=== PATIENT | male | born 1960 | race Caucasian/White ===

== ENCOUNTER 2019-09-25 21:36 | Emergency (ER) | payer OTHER, SELFPAY ==
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
[2019-09-25 21:38] VITALS: BP 157/93; PULSE 84; RESP 19; TEMP 36.3; O2SAT 100
[2019-09-25] MEDS: TETANUS,DIPHTHERIA,AC PERTUSSIS ADULT (0.5 ML) BOOSTRIX IM (22:27)
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
[2019-09-25] MEDS: KETOROLAC (*BKC) 60 MG/2 ML VIAL IM (23:43)
== END 2019-09-26 00:26 | disposition home or self-care (01) ==
PROVIDERS: Emergency Provider General Practice
DX: S02.2XXA Fracture of nasal bones, initial encounter for closed fracture (principal); S00.81XA Abrasion of other part of head, initial encounter; S00.83XA Contusion of other part of head, initial encounter; R07.81 Pleurodynia; Z23 Encounter for immunization; Y04.2XXA Assault by strike against or bumped into by another person, initial encounter
CPT/HCPCS: 70486; 71101; 72125; 90471; 90715; 96372; 99284; J1885

== ENCOUNTER 2024-08-14 08:19 | Outpatient (CLI) | payer MEDICARE, OTHER, SELFPAY ==
--- OUTSIDE RECORDS SUMMARY | 2024-08-14 08:34 | XMS_ITS | Encounter Summary ---
Author Organization [facility] Address [address] [place] [address] Care Team Providers Care Printing Agent Name Role Phone Padmini Flores MD Primary Care Provider [phone] Encounter Details Date Type Department Care Team (Late st Contact Info) Description 05/29/2019 [facility] [address] [facility], [facility] [address] [place] [address] Himprovider, Scan Social History Tobacco Use Types Packs/Day Years Used Date Smoking Tobacco: Never Assessed Sex and Gender Information Value Date Recorded Sex Assigned at Not on file Legal Sex Male 9:36 AM MDT Gender Identity Not on file Sexual Orientation Not on file documented as of this encounter Plan of Treatment Not on file documented as of this encounter Visit Diagnoses Not on filedocumented in this encounter Additional Health Concerns Infection Onset Date Last Indicated Resolved Time Covid-19 05/10/2021 05/10/2021 06/09/2021 2:30 AM MST documented as of this encounter Care Teams Printing Agent Relationship Specialty Start Date End Date Padmini Flores MD [address] [place] [address] [address] [place] [address] PCP - General Family Medicine 06/13/22 documented as of this encounter
--- OUTSIDE RECORDS SUMMARY | 2024-08-14 08:34 | XMS_ITS ---
Care Plan - [facility] Created on: August 14, 2024 Shaheen Stephens : 1960 Sex: Male Author Organization [facility] Address [address] [place] [address] Phone Care Team Providers Care Pediatric Allergist Name Role Phone Miladis Leonardo DO Unavailable [phone] Pauline Higuera DO Primary Care Provider Unavailab le
--- OUTSIDE RECORDS SUMMARY | 2024-08-14 08:34 | XMS_ITS | Encounter Summary ---
Author Organization [facility] Address [address] [place] [address] Care Team Providers Care Community Product Specialist Name Role Phone Padmini Flores MD Primary Care Provider Encounter Details Date Type Department Care Team (Late st Contact Info) Description 05/31/2019 Abstract [facility] [address] [facility], [place] [address] [place] [address] Himprovider, Scan Social History Tobacco [...] documented as of this encounter Care Teams Community Product Specialist Relationship Specialty Start Date End Date Padmini Flores MD [address] [place] [address] [address] [place] [address] PCP - General Family Medicine 06/13/22 documented as of this encounter
--- OUTSIDE RECORDS SUMMARY | 2024-08-14 08:34 | XMS_ITS | Clinical Summary ---
Author Organization [facility] Address [address] [place] [address] Care Team Providers Care Voice Professor Name Role Phone Padmini Flores MD Primary Care Provider [phone] Allergies No known active allergies Medications cholecalciferol (VITAMIN D-3) 25 mcg (1,000 unit) capsule Vitamin D3 1,000 unit oral capsule one daily Active Active multivitamin with minerals (CENTRUM/CERTAV IT) 9-200 mg-mcg tablet split tablet multivitamin oral tablet take 1 tablet by oral route daily Active Active gluc culp/msm/magnesiu m/vit C (GLUCOSAMINE COMPLEX-MSM ORAL) Active docosahexaenoic acid/epa (FISH OIL ORAL) Active levothyroxine (SYNTHROID, UNITHROID) 112 mcg tablet Take 2 tablets (224 mcg total) by mouth 1 (one) time each day. 60 tablet 1 Active naproxen (NAPROSYN) 500 mg tablet Take 1 tablet (500 mg total) by mouth every 12 (twelve) hours if needed. 2 Active naltrexone HCl (NALTREXONE PO) 4.5 mg. 2 Active Active Problems Problem Noted Date Diagnosed Date Hyperlipidemia 06/13/2022 Assessment & Plan (06/13/2022 2:34 PM MST): Hesitant to start meds right now. Will recheck FLP in 4 weeks and advise follow up Prehypertension 06/13/2022 Assessment & Plan (06/13/2022 2:36 PM MST): Reports had been on meds in the past. Will recheck at subsequent visits- try to work on lifestyle changes first Right inguinal hernia 06/13/2022 Overview (06/13/2022): Reports h/o right inguinal hernia, based on exam from prior physician. Not currently asymptomatic Ventral hernia without obstruction or gangrene 0 06/13/2022 Overview (06/13/2022): Based on PE on 06/13/22. Reducible, soft. Asymptomatic no h/o abd surgery BMI 31.0-31.9,adult 12/13/2021 Assessment & Plan (06/13/2022 2:36 PM MST): Talked about trying to lose the weight again- had gained 10# over the holidays Degenerative disc disease, cervical 11/07/2018 Vitamin D deficiency 11/07/2018 Acquired hypothyroidism 03/02/2017 Assessment & Plan (06/13/2022 2:35 PM MST): TSH is 8.270 but FT4 and T3 were normal Not actually taking Cytomel. Was on this as well as Berkey in the past via a remote endo in [place]. Looking at past trends, has been hard to stabilize TSH. Currently taking Synthroid 224mcg daily, which is a high dose, but still with sx of fatigue. Confirmed he is taking on empty stomach 30 min before meals and other meds and supplements. Will refer to endo Osteoarthritis of shoulder 11/11/2004 Overview (06/13/2022): History of gurvinder shoulder surgeries Immunizations Name Administration Dates Next Due Hep A, 2 Dose Adult (>= 19yrs) 03/29/2013,09/17/2012 Influenza Quadrivalent ID Preservative Free 02/08/2019 Influenza, Injectable, Quadr ivalent, Preservative Free 02/08/2019 Influenza, Unspecified 02/21/2017 Influenza, injectable, quadrivalent 02/19,05/05/2016,02/23/2016(Deferr ed: Patient decision - Pt does not get immunized) Influenza, seasonal, injectable 02/08/2019,03/24,03/11/2006 Td 10/09/2004 Tdap 09/25/2019 Zoster Recombinant 11/15/2021,04/19/2021, 020 Family History Medical History Relation Comments Alcohol abuse Daughter Alcohol abuse Father Pancreatic cancer Father No Known Problems Maternal Grandfather No Known Problems Maternal Grandmother Arthritis Mother meds Osteoporosis Mother No Known Problems Paternal Grandfather No Known Problems Paternal Grandmother Relation Status Comments Daughter Father Maternal Grandfather Maternal Grandmother Mother Paternal Grandfather Paternal Grandmother Social History Tobacco Use Types Packs/Day Years Used Date Smoking Tobacco: Never Smokeless Tobacco: Never Alcohol Use Standard Drinks/Week Comments Not Currently 0 (1 standard drink = 0.6 oz pur e alcohol) Humiliation, Afraid, Rape, and Kick questionnair e Answer Date Recorded Within the last year, have y ou been afraid of your partner or ex-partner? No 12/13/2021 Within the last year, have y ou been humiliated or emotionally abused in other ways by your partner or ex-partner? No Within the last year, have y ou been kicked, hit, slapped, or otherwise physically hurt by your partner or ex-partner? No 12/13/2021 Within the last year, have y ou been raped or forced to have any kind of sexual activity by your partner or ex-partner? No 12/13/2021 Social Connection and Isolat ion Panel [NHANES] Answer Date Recorded In a typical week, how many times do you talk on the phone with family, friends, or neighbors? More than three times a week 12/13/2021 How often do you get togethe r with friends or relatives? Three times a week 12/13/2021 How often do you attend chur ch or yazidism services? More than 4 times per year 12/13/2021 Do you belong to any clubs o r organizations such as zoroastrianism groups, unions, fraternal or athletic groups, or school groups? Yes 12/13/2021 How often do you attend meet ings of the clubs or organizations you belong to? More than 4 times per year 12/13/2021 Are you , , di vorced, , never , or living with a partner? Never 12/13/2021 AUDIT-C Answer Date Recorded Q1: How often do you have a drink containing alc ohol? Never 12/13/2021 Q2: How many drinks containi ng alcohol do you have on a typical day when you are drinking? 1 or 2 12/13/2021 Q3: How often do you have six or more drinks on one occasion? Never 12/13/2021 Overall Financial Resource Strain (CARDIA) Answe r Date Recorded How hard is it for you to pa y for the very basics like food, housing, medical care, and heating? Not very hard 12/13/2021 [facility] - Occupational Stress Questionnaire Answer Date Recorded Do you feel stress - tense, restless, nervous, or anxious, or unable to sleep at night because your mind is troubled all the time - these days? Only a little 12/13/2021 Exercise Vital Sign Answer Date Recorde d On average, how many days pe r week do you engage in moderate to strenuous exercise (like a brisk walk)? 4 days 12/13/2021 On average, how many minutes do you engage in exercise at this level? 50 min 12/13/2021 Hunger Vital Sign Answer Date Recorded Within the past 12 months, y ou worried that your food would run out before you got the money to buy more. Never true 12/14/19 22 Within the past 12 months, t he food you bought just didn't last and you didn't have money to get more. Never true 12/13/2021 PRAPARE - Transportation Answer Date Re corded In the past 12 months, has l ack of transportation kept you from medical appointments or from getting medications? No 11/20 In the past 12 months, has l ack of transportation kept you from meetings, work, or from getting things needed for daily living? No 12/13/2021 Housing Stability Vital Sign Answer Stuart e Recorded In the last 12 months, was t here a time when you were not able to pay the mortgage or rent on time? No 12/13/2021 In the last 12 months, how many places have you lived? 1 12/13/2021 In the last 12 months, was t here a time when you did not have a steady place to sleep or slept in a assisted (including now)? No 12/13/2021 Sex and Gender Information Value Date Recorded Sex Assigned at Not on file Legal Sex Male 9:36 AM MDT Gender Identity Not on file Sexual Orientation Not on file Last Filed Vital Signs Vital Sign Reading Time Taken Comments Blood Pressure 138/82 06/13/2022 1:24 PM MST Pulse 59 06/13/2022 1:24 PM MST Temperature 36.3 C (97.3 F) 06/13/2022 1:24 PM MST Respiratory Rate 20 12/13/2021 4:30 PM MDT Oxygen Saturation 93% 06/13/2022 1:24 PM MST Inhaled Oxygen Concentration - - Weight 101 kg (222 lb 6.4 oz) 06/13/2022 1:24 PM MST Height 176 cm (5' 9.29 ) 12/13/2021 4:30 PM MDT Body Mass Index 32.57 12/13/2021 4:30 PM MDT Plan of Treatment Health Maintenance Due Date Last Done Comments CT Colonography 1960 Cologuard 1960 Sigmoidoscopy 1960 FIT/FOBT 09/17/2013 09/17/2012 Colonoscopy 10/29/2022 10/29/2012, 09/17/2012 Colorectal Cancer Screening 10/29/2022 Influenza Vaccine (#1) 2023 9, 02/08/2019, 02/08/2019, Additional history exists COVID-19 Vaccine ( - season) 2024 Advance Care Plan Codes Not Dropped This Year 2024 Pneumococcal Vaccine: 65+ Years (1 of 1 - PCV) 2024 DTaP,Tdap,and Td Vaccines (2 - Td or Tdap) 09/24/2029 09/25/2019, 10/09/2004 RSV Age 60+ and Patients (1 - 1-dose 75+ series) 2034 Hepatitis A Vaccines Completed 03/29/2013, 09/18/19 13 Zoster Vaccines Completed 11/15/2021, 11/2 01/2021, 01/20/2020 HIB Vaccines Aged Out No longer eligi ble based on patient's age to complete this topic Hepatitis B Vaccines Discontinued IPV Vaccines Aged Out No longer eligi ble based on patient's age to complete this topic Meningococcal Vaccine Aged Out No carl prashant eligible based on patient's age to complete this topic Procedures Procedure Name Priority Date/Time Associated Diagnosis Comments COLONOSCOPY Routine 10/29/2012 9:29 AM MDT from Last 3 Months or Most Recently Relevant to Health Maintenance Results * Hm Colonoscopy (10/29/2012 9:29 AM MDT) Anatomical Region Laterality Modality Other Historical Provider MD HEALTH MAINTENANCE Final Result from Last 3 Months or Most Recently Relevant to Health Maintenance Insurance PENDING SALE TO [facility] PENDING SALE TO [facility] Care Teams Voice Professor Relationship Specialty Start Date End Date Padmini Flores MD [address] [facility] [address] [place] [address] PCP - General Family Medicine 06/13/22
--- OUTSIDE RECORDS SUMMARY | 2024-08-14 08:34 | XMS_ITS | Patient Health Record ---
Author Organization [facility] Address [address] [place] [address] Care Team Providers Care Men'S Golf Coach Name Role Phone unknown, unknown Primary Care Provider Unavailab sabrina Prasad, [id number] Lizz Unavailable Allergies No Known Allergies Results Component Value Reference Range Notes Urinalysis (IH) Reviewed date:11/29/2023 11:09:39 AM Interpretation:Normal Performing Lab: Notes/Report: Normal Blood Hemolyzed Negative trace - ca. 250 Joseph/ml Protein 30 negative - 500 mg/dL Glucose Negative negative - > 1000 mg/dL Spec. Gr. 1.025 1.000 - 1.030 Reason For Referral No Information Medications Medication SIG (Take, Route, Frequency, Duration) Notes Start Date End Date Status Naltrexone HCl 50 MG 1 tablet Orally Once a day States he takes 0.05 mg daily for Hashimotos Active Levothyroxine Sodium 100 MCG 1 capsule i n the morning on an empty stomach Orally Once a day Active Social History Tobacco Use: Social History Observation Description Date Details (start date - stop date) Never Smoker NA - NA Tobacco Control (Standard) Question Answer Notes Tobacco use: Nonsmoker Vital Signs Respiratory Rate 16 /min 11/29/2023 Blood pressure diastolic 92 mm Hg 11/29/2023 Height 69 in 11/29/2023 Blood pressure systolic 144 mm Hg 11/29/2023 Weight 223 lbs 11/29/2023 BMI 32.93 kg/m2 11/29/2023 Encounters Encounter Location Date Provider Diagnosis [id number] [facility] [address] [address] 11/29/2023 Lizz Prasad Encounter for pre-employment health screening examination Z02.1 Assessments Encounter Date Diagnosis (ICD Code) Assessment Notes Treatment Notes Treatment Clinical Notes Section Notes 11/29/2023 Encounter for pre-employment health screening examination (ICD-10 - Z02.1) Plan Of Treatment No Information Insurance Providers Payer Name Payer Address Payer Phone Subscriber Number Group Number Insured Name Patient Relationship to Insured Coverage Start Date Coverage End Date PROMPT PAY/Bill to Patient Shaheen Stephens A Self - patient is the insured Medical (General) History Medical History History ICD Code Hashimotos
--- OUTSIDE RECORDS SUMMARY | 2024-08-14 08:34 | XMS_ITS | Clinical Summary ---
Author Organization [facility] Address [address] [place] [address] Care Team Providers Care Head Holder Name Role Phone None, Provider MD Primary Care Provider Unavaila ble Allergies No known active allergies Medications NON FORMULARY Thyroid testosterone Active predniSONE (DELTASONE) 20 MG tablet Take 1 tablet (20 mg total) by mouth daily for 5 days. 5 tablet 08/01/2024 08/07/19 25 hydrOXYzine (ATARAX) 50 MG tabletIndicatio ns:Poison audrey dermatitis Take 1 tablet (50 mg total) by mouth 3 (three) times daily as needed for Itching. 30 tablet 08/01/2024 08/12/19 25 famotidine (PEPCID) 20 MG tablet Take 1 tablet (20 mg total) by mouth 2 (two) times daily for 5 days. 10 tablet 08/01/2024 08/07/19 25 Encounters Date Type Department Care Team Description 08/01/2024 9:29 AM CDT - 08/01/2024 11:14 AM CDT Emergency [facility] [address] [place] [address] [place] [address] Ajay Cummings, Poison [place]/ Poison [place]/ Poison [place] Discharge Disposition: Home or Self Care (Routine Discharge) 08/01/2024 Travel from Last 3 Months Social History Tobacco Use Types Packs/Day Years Used Date Smoking Tobacco: Never Smokeless Tobacco: Never Tobacco Cessation:Counseling Given: Not Answered Sex and Gender Information Value Date Recorded Sex Assigned at Male 08/01/2024 9:49 AM CDT Legal Sex Male 11:53 AM CDT Gender Identity Male 08/01/2024 9:49 AM CDT Sexual Orientation Not on file Last Filed Vital Signs Vital Sign Reading Time Taken Comments Blood Pressure 118/59 08/01/2024 10:00 AM CDT Pulse 63 08/01/2024 9:27 AM CDT Temperature 36.9 C (98.4 F) 08/01/2024 9:27 AM CDT Respiratory Rate 16 08/01/2024 9:27 AM CDT Oxygen Saturation 100% 08/01/2024 11:10 AM CDT Inhaled Oxygen Concentration - - Weight 103.1 kg (227 lb 6 oz) 08/01/2024 9:27 AM CDT Height 174 cm (5' 8.5 ) 08/01/2024 9:27 AM CDT Body Mass Index 34.07 08/01/2024 9:27 AM CDT Plan of Treatment Health Maintenance Due Date Last Done Comments Colorectal Cancer Screening Colonoscopy (10 Years) 1960 Hepatitis C 1977 COVID-19 Vaccine ( - season) 2024 Influenza Adult (#1) 2024 02/08/2019, 03/01/2018, 02/21/2017, Additional history exists Pneumococcal Vaccine: 65+ Years (1 of 1 - PCV) 2024 DTaP, Tdap and Td Vaccines (2 - Td or Tdap) 09/24/2029 09/25/2019, 10/09/2004 RSV Immunization or 60+ Years (1 - 1-dose 75+ series) 2034 Zoster Vaccines Completed 11/15/2021, 03/23, 01/20/2020 Meningococcal B Vaccine Aged Out No l onger eligible based on patient's age to complete this topic Meningococcal Vaccine Aged Out No carl prashant eligible based on patient's age to complete this topic Pneumococcal Vaccine: Pediatrics (0 to 5 Years) and At-Risk Patients (6 to 64 Years) Aged Out No longer eligible based on patient's age to complete this topic RSV Immunizations Under 20 Months Aged Out No longer eligible based on patient's age to complete this topic Insurance MEDICARE [facility] Care Teams Head Holder Relationship Specialty Start Date End Date None, Provider, MD PCP - General UNKNOWN PHYSICIAN SPECIALTY 10/29/23
--- OUTSIDE RECORDS SUMMARY | 2024-08-14 08:34 | XMS_ITS | Encounter Summary ---
Author Organization [facility] Address [address] [place] [address] Care Team Providers Care Rig Hand Name Role Phone Padmini Flores MD Primary Care Provider [phone] Encounter Details Date Type Department Care Team (Late st Contact Info) Description 04/01/[address] [facility] Occupational Health Services at [facility] [address] [facility], [facility] [address] [place] [address] Blair Staley MD [facility] [address] [place], [place] [id number] Social History Tobacco Use Types Packs/Day Years [...] documented as of this encounter Care Teams Rig Hand Relationship Specialty Start Date End Date Padmini Flores MD [address] [place] [address] [address] [place] [address] PCP - General Family Medicine 06/13/22 documented as of this encounter
--- OUTSIDE RECORDS SUMMARY | 2024-08-14 08:34 | XMS_ITS | Clinical Summary ---
Author Organization [facility] Address [address] [place] [address] Phone Care Team Providers Care Insurance Appraiser Name Role Phone Miladis Leonardo DO Unavailable [phone] Pauline Higuera DO Primary Care Provider Unavailab le Reason for Visit and Chief Complaint Recall Colon Plan of Treatment No Plan of Treatment Recorded Assessments Includes: Assessments from this encounter No Assessments Recorded Medical Equipment - Implanted Devices Includes: Current Devices No Medical Equipment Recorded Medications Administered Includes: Administered Medications from this encounter No Administered Medications Recorded Results Includes: Results discussed during this encounter No Results Recorded For Specified Dates History of Present Illness Includes: History of Present Illness from this encounter No History of Present Illness Recorded Social History No Social History Recorded - Smoking Status Unknown Medical History Includes: Medical History addressed during this encounter No Medical History Recorded Family History Includes: Family History addressed during this encounter No Family History Recorded Review of Systems Includes: Review of Systems from this encounter No Review of Systems Recorded Mental Status Includes: Mental Status from this encounter No Mental Status Recorded Functional Status Includes: Functional Status from this encounter No Functional Status Recorded Physical Exam Includes: Physical Exam from this encounter No Physical Exam Recorded Encounters Encounter Provider Location Date Check-In Time Check-Out Time Diagnosis Recall Colon Mario [facility]-Itzel ojeda 8 7:05AM 7:46AM Insurance Includes: Active Insurance Policies No Insurance Coverage Recorded Guarantor Relationship Effective Dates Guarantor Ph one Kat Shaheen Tiffany Self [id number] Clinical Notes Includes: Clinical Notes from this encounter No Clinical Notes Recorded
--- OUTSIDE RECORDS SUMMARY | 2024-08-14 08:34 | XMS_ITS ---
Author Organization [facility] Address [address] [place] [address] Phone Care Team Providers Care Apparatus Lineman Name Role Phone Miladis Leonardo DO Unavailable [phone] Pauline Higuera DO Primary Care Provider Unavailab le Plan of Treatment No Plan of Treatment Recorded Assessments Includes: Assessments for all patient encounters No Assessments Recorded Medical Equipment - Implanted Devices Includes: Current and historical Devices No Medical Equipment Recorded Medications Administered Includes: Administered Medications in patient's chart No Administered Medications Recorded Results Includes: Results from 08/15/2023 through 08/14/2024 No Results Recorded For Specified Dates History of Present Illness History of Present Illness not supported for this document type No History of Present Illness Recorded Social History No Social History Recorded - Smoking Status Unknown Medical History Includes: Medical History in patient's chart No Medical History Recorded Family History Includes: Family History in patient's chart No Family History Recorded Review of Systems Review of Systems not supported for this document type No Review of Systems Recorded Mental Status No Mental Status Recorded Functional Status No Functional Status Recorded Physical Exam Physical Exam not supported for this document type No Physical Exam Recorded Insurance Includes: Active Insurance Policies No Insurance Coverage Recorded Guarantor Relationship Effective Dates Guarantor Ph one Shaheen Stephens Self [id number] Clinical Notes Includes: Signed Clinical Notes starting from 06/09/2023 No Clinical Notes Recorded
--- OUTSIDE RECORDS SUMMARY | 2024-08-14 08:34 | XMS_ITS | Encounter Summary ---
Author Organization [facility] Address [facility] [address], [address] [place] [address] Care Team Providers Care Automobile Body Repairer Name Role Phone Unavailable Primary Care Provider Unavailabl e Source Comments In the event that these patient records contain information protected by federal confidentiality rules ( 42 CFR Part 2), the Federal rules prohibit you from making any further disclosure of this information unless further disclosure is expressly permitted by the written consent of the person to whom it pertains or as otherwise permitted by 42 CFR Part 2. A general authorization for the release ofmedical or other information is NOT sufficicient for this purpose. The Federal rules restrict any use of the information to criminally investigate or prosecute any alcohol or drug abuse patient.[facility] Encounter Details Date Type Department Care Team (Late st Contact Info) Description 10/09/2004 Emergency [facility] - Emergency Medicine Services [address] [place] [address] PROVIDER, NOT CONVERTED Social History Tobacco Use Types Packs/Day Years Used Date Smoking Tobacco: Never Assessed Sex and Gender Information Value Date Recorded Sex Assigned at Not on file Legal Sex Male 9:53 AM MST Gender Identity Not on file Sexual Orientation Not on file documented as of this encounter Plan of Treatment Not on file documented as of this encounter Visit Diagnoses Not on filedocumented in this encounter
--- OUTSIDE RECORDS SUMMARY | 2024-08-14 08:34 | XMS_ITS | Clinical Summary ---
Author Organization [facility] Address Regional Office [address] [place] [address] Care Team Providers Care Line Prep Cook Name Role Phone Unavailable Primary Care Provider Unavailabl e Source Comments NOTE: The information displayed by Care Everywhere is extracted from the complete medical record and may not identify all current or past patient conditions.[facility] Allergies Active Allergy Reactions Criticality Noted Date Comments No Known Drug Allergies 09/03/2004 No Latex Allergy 09/03/2004 Medications No known medications Active Problems Problem Noted Date Diagnosed Date HIGH DENSITY LIPOPROTEIN DEFICIENCY 04/05/2007 ROUTINE ADULT HEALTH CHECK UP EXAM 03/21/2007 Overview (04/05/2007): CRFs: Age, no HTN, no DM, low HDL, neg FamHx, no tob, no metabolic syndrome. Colonoscopy/Flex sig: Immunizations: Td shot < 10 years ago. Family history of colon or prostate CA: no MRSA INFECTION 07/08/2005 OSTEOARTHRITIS OF SHOULDER. 11/11/2004 Overview (11/11/2004): bilateral OPEN FX FINGER, PHALANX, DISTAL. 10/27/2004 CARBUNCLE 09/29/2004 Immunizations Immunization Administration Dates Next Due INFs 3yrs-adult (Influenza) 03/24/2007, 6 TD pres free (Tetanus, Diphtheria) (TdVax), adso rbed 10/09/2004 Social History Tobacco Use Types Packs/Day Years Used Date Smoking Tobacco: Never Alcohol Use Standard Drinks/Week Comments Not Asked 0 (1 standard drink = 0.6 oz pur e alcohol) Sex and Gender Information Value Date Recorded Sex Assigned at Not on file Legal Sex Male 2:52 PM MDT Gender Identity Not on file Sexual Orientation Not on file Last Filed Vital Signs Vital Sign Reading Time Taken Comments Blood Pressure 108/70 03/21/2007 3:40 PM MDT Pulse 80 03/21/2007 3:40 PM MDT Temperature 35.7 C (96.3 F) 03/21/2007 3:40 PM MDT Respiratory Rate 20 03/21/2007 3:40 PM MDT Oxygen Saturation 95% 03/21/2007 3:40 PM MDT Inhaled Oxygen Concentration - - Weight 106.2 kg (234 lb 1.6 oz) 03/21/2007 3:40 PM MDT Height 175.3 cm (5' 9 ) 03/21/2007 3:40 PM MDT Body Mass Index 34.57 03/21/2007 3:40 PM MDT Plan of Treatment Not on file
--- OUTSIDE RECORDS SUMMARY | 2024-08-14 08:34 | XMS_ITS | Encounter Summary ---
Author Organization [facility] Address [address] [place] [address] Care Team Providers Care Mercury Washer Name Role Phone Padmini Flores MD Primary Care Provider [phone] Encounter Details Date Type Department Care Team (Late st Contact Info) Description 03/23/2020 Abstract [facility] [address] [facility] [address] [place] [address] Jourdan Gaona MD [address] [place] [address] [address] [place] [address] Social History Tobacco Use Types Packs/Day Years Used Date Smoking Tobacco: Never Smokeless Tobacco: Never Sex and Gender Information Value Date Recorded [...] Covid-19 05/10/2021 05/10/2021 06/09/2021 2:30 AM MST Assessment Noted Time PHQ-9 Depression Total Score: 0 01/20/20 20 7:44 AM MDT documented as of this encounter Care Teams Mercury Washer Relationship Specialty Start Date End Date Padmini Flores MD [address] [place] [address] [address] [place] [address] PCP - General Family Medicine 1/23/23 documented as of this encounter
--- OUTSIDE RECORDS SUMMARY | 2024-08-14 08:34 | XMS_ITS | Clinical Summary ---
Author Organization [facility] Address [address] [place] [address] Care Team Providers Care Incident Response Analyst Name Role Phone Unavailable Primary Care Provider Unavailabl e Social History Tobacco Use Types Packs/Day Years Used Date Smoking Tobacco: Never Assessed Sex and Gender Information Value Date Recorded Sex Assigned at Not on file Legal Sex Male 9:42 AM PST Gender Identity Not on file Sexual Orientation Not on file Plan of Treatment Not on file
--- OUTSIDE RECORDS SUMMARY | 2024-08-14 08:34 | XMS_ITS | Clinical Summary ---
Author Organization [facility] [employer] [facility] Address [address] [address] Care Team Providers Care Vending Machine Operator Name Role Phone Natividad Brown MD Primary Care Provider Allergies No known active allergies Medications lisinopril (PRINIVIL,ZEST RIL) 10 mg tablet lisinopril 10 mg tablet Active levothyroxine (SYNTHROID) 200 mcg tablet levothyroxine 200 mcg tablet Active oxyCODONE (ROXICODONE) 5 mg immediate release tablet Take 1-2 tablets by mouth every 6 hours as needed for Acute Pain. 20 tablet 9 Active naproxen (NAPROSYN) 500 mg tablet Take 1 tablet by mouth 2 times daily (with meals) for Pain. 10 tablet 3 9 Active Active Problems Problem Noted Date Diagnosed Date Left shoulder pain 06/20/2019 Primary osteoarthritis of left shoulder 04/01/20 19 Social History Tobacco Use Types Packs/Day Years Used Date Smoking Tobacco: Never Smokeless Tobacco: Never Alcohol Use Standard Drinks/Week Comments No 0 (1 standard drink = 0.6 oz pur e alcohol) AUDIT-C Answer Date Recorded Frequency of Alcohol Consumption Never 03/02/2018 Average Number of Drinks Not on file 018 Frequency of Binge Drinking Not on file 02/19 Sex and Gender Information Value Date Recorded Sex Assigned at Not on file Legal Sex Male 12:48 AM MDT Gender Identity Not on file Sexual Orientation Not on file Last Filed Vital Signs Vital Sign Reading Time Taken Comments Blood Pressure - - Pulse - - Temperature - - Respiratory Rate - - Oxygen Saturation - - Inhaled Oxygen Concentration - - Weight 98.9 kg (218 lb) 06/10/2019 7:42 AM [facility] Height 175.3 cm (5' 9 ) 06/10/2019 7:42 AM [facility] Body Mass Index 32.19 06/10/2019 7:42 AM [facility] Plan of Treatment Health Maintenance Due Date Last Done Comments CT Colonography 1959 Colonoscopy 1959 Colorectal Cancer Screening 1959 Flexible Sigmoidoscopy 1959 Stool DNA Test (Cologuard) 1959 Stool Occult Blood Test (FIT) 1959 Hepatitis C Antibody Screening 1977 Medical Durable Power of Att orn[employer]penoid [employer]rapeutics (MDPOA) 1977 Tdap/Td Vaccine (1 - Tdap) 10/10/2004 10/09/2004 Pneumonia Vaccine 50+ (1 of 1 - PCV) 2009 Shingles Vaccine (1 of 2) 2009 Lipids 04/04/2012 04/04/2007, 04/04/2007 Influenza Vaccine (#1) 2024 , 03/01/2018, 02/21/2017, Additional history exists SARS-COV2 (COVID-19) Vaccine ( season) 2024 Insurance [employer] POS CC[employer] WC Member Subscriber Plan / Payer (Ef fective 2015-Present) Name:Shaheen Stephens Relation to Subscriber:Self Name:Shaheen Stephens Payer ID:[id number] Type:Other Address: [place] [id number] Care Teams Vending Machine Operator Relationship Specialty Start Date End Date Natividad Brown MD PCP - General Physical Medicine and Rehabilitation 03/02/18
--- OUTSIDE RECORDS SUMMARY | 2024-08-14 08:34 | XMS_ITS | Clinical Summary ---
Author Organization [facility] Address [facility] [address], [address] [place] [address] Care Team Providers Care Toy Assembler Name Role Phone Unavailable Primary Care Provider Unavailabl e Source Comments [facility] (Labor and Delivery) documents do not appear in the Encounter Summary [facility] Social History Tobacco Use Types Packs/Day Years Used Date Smoking Tobacco: Never Assessed Sex and Gender Information Value Date Recorded Sex Assigned at Not on file Legal Sex Male 9:53 AM MST Gender Identity Not on file Sexual Orientation Not on file Plan of Treatment Health Maintenance Due Date Last Done Comments CT Colonography 1959 DNA-based stool test (Cologuard) 1959 Lipid Panel 1959 Sigmoidoscopy 1959 gFOBT or FIT 1959 Tetanus Diphtheria and Pertu ssis Vaccines (1 - Tdap) 1978 Colonoscopy 2004 Colorectal Cancer Screening 2004 Pneumococcal Vaccine: 65+ Ye ars (1 of 1 - PCV) 2009 Zoster Vaccines (1 of 2) 2009 COVID-19 Vaccine ( - 2023-2 5 season) 2024 Influenza Vaccine (#1) 2024 RSV Vaccines (1 - 1-dose 75+ series) 2034 HPV Vaccine Aged Out No longer eligi ble based on patient's age to complete this topic Hepatitis A Vaccine Aged Out No longe r eligible based on patient's age to complete this topic Hepatitis B Vaccine Aged Out No longe r eligible based on patient's age to complete this topic Hib Vaccine Aged Out No longer eligi ble based on patient's age to complete this topic IPV Vaccine Aged Out No longer eligi ble based on patient's age to complete this topic Meningococcal Vaccine (MCV4) Aged Out No longer eligible based on patient's age to complete this topic Pneumococcal Vaccine: Pediat rics (0 to 5 Years) and At-Risk Patients (6 to 64 Years) Aged Out No longer eligible b ased on patient's age to complete this topic Rotavirus Vaccine Aged Out No longer eligible based on patient's age to complete this topic
--- OUTSIDE RECORDS SUMMARY | 2024-08-14 08:34 | XMS_ITS | Encounter Summary ---
Author [facility] Address [address] [place] [address] Care Team Providers Care Implementation Coordinator Name Role Phone Unavailable Primary Care Provider Unavailabl e Prior Encounters Date Type Department Care Team Description 06/10/2019 Converted CPS Chart Documents Son [facility] [address] [place] [id number] <No scans attached> 06/10/2019 Converted 13x Documents Son [facility] [address] [place] [phone] <No scans attached> Plan of Treatment Not on file Procedures Procedure Name Priority Date/Time Associated Diagnosis Comments CANCELLED APPOINTMENT Routine 10/20/2016 1:00 AM MDT 15 CROWN - FULL CAST PREDOMINANTLY BASE METAL Routine 05/11/2016 1:00 AM MST 14 CROWN - FULL CAST PREDOMINANTLY BASE METAL Routine 05/11/2016 1:00 AM MST 2 MOD AMALGAM 3 SURFACE Routine 05/11/20 16 1:00 AM MST 30 B AMALGAM 1 SURFACE Routine 6 1:00 AM MST 3 O AMALGAM 1 SURFACE Routine 05/11/2016 1:00 AM MST 19 ENDODONTIC THERAPY, ANTERIOR TOOTH (EXCLUDING FINAL VOODOO) Routine 05/11/2016 1:00 AM MST 8 ENDODONTIC THERAPY, ANTERIOR TOOTH (EXCLUDING FINAL VOODOO) Routine 05/11/2016 1:00 AM MST 31 CROWN PFM POST Routine 05/11/2016 1:0 0 AM MST 19 CROWN PFM ANT Routine 05/11/2016 1:00 AM MST 18 CROWN PFM ANT Routine 05/11/2016 1:00 AM MST 9 CROWN PFM ANT Routine 05/11/2016 1:00 AM MST 8 CROWN PFM ANT Routine 05/11/2016 1:00 AM MST 19 CORE BUILDUP, INCLUDING ANY PINS WHEN REQUIRED Routine 05/11/2016 1:00 AM MST 19 CEMENT CROWN Routine 05/11/2016 1:00 AM [facility] 19 CERECFIRED CROWNPOST Routine 05/11/20 16 1:00 AM [facility] COMPREHENSIVE ORAL EVALUATION - NEW OR ESTABLISHED PATIENT Routine 05/11/2016 1:00 AM [facility] ADDITIONAL X-RAY Routine 05/11/2016 1:00 AM [facility] SINGLE X-RAY Routine 05/11/2016 1:00 AM [facility] 30 O COMPOSITE FILLING Routine 6 1:00 AM [facility] Visit Diagnoses Not on file
--- OUTSIDE RECORDS SUMMARY | 2024-08-14 08:34 | XMS_ITS | Clinical Summary ---
Author Organization [facility] Address [address] [place] [address] Phone Care Team Providers Care Supervisor [place] Name Role Phone Miladis Leonardo DO Unavailable [phone] Pauline Higuera DO Primary Care Provider Unavailab le Reason for Visit and Chief Complaint Son ([facility]) Colonoscopy Plan of Treatment No Plan of Treatment [...] Location Date Check-In Time Check-Out Time Diagnosis Son ([facility]) Colonoscopy Mario Tsang MD [facility] 10/30/19 13 10:10AM 12:00PM Insurance Includes: Active Insurance Policies No Insurance Coverage Recorded Guarantor Relationship Effective Dates Guarantor Ph one Shaheen Stephens Tiffany Self [id number] Clinical Notes Includes: Clinical Notes from this encounter No Clinical Notes Recorded
--- OUTSIDE RECORDS SUMMARY | 2024-08-14 08:34 | XMS_ITS | Encounter Summary ---
Author Organization [facility] Address [address] [place] [address] Care Team Providers Care Beef Ribber Name Role Phone Padmini Flores MD Primary Care Provider [phone] Encounter Details Date Type Department Care Team (Late st Contact Info) Description 01/20/2020 [facility] [address], [facility] [address] [place] [address] [facility] Social History Tobacco Use Types Packs/Day Years Used Date Smoking Tobacco: Never Smokeless Tobacco: Never Sex and Gender Information Value Date Recorded Sex Assigned at Not on file Legal Sex Male 9:36 AM MDT Gender Identity Not on file Sexual Orientation Not on file COVID-19 Exposure Response Date Recorded In the last month, have you been in contact with someone who was confirmed or suspected to have Coronavirus / COVID-19? No / Unsure 01/20/2020 7:30 AM MDT documented as of this encounter Plan of Treatment Not on file documented as of this encounter Visit Diagnoses Not on filedocumented in this encounter Additional Health Concerns Infection Onset Date Last Indicated Resolved Time Covid-19 05/10/2021 05/10/2021 06/09/2021 2:30 AM MST Assessment Noted Time PHQ-9 Depression Total Score: 0 01/20/20 7:44 AM MDT documented as of this encounter Care Teams Beef Ribber Relationship Specialty Start Date End Date Padmini Flores MD [address] [place] [address] [address] [place] [address] PCP - General Family Medicine 06/13/22 documented as of this encounter
--- OUTSIDE RECORDS SUMMARY | 2024-08-14 08:34 | XMS_ITS | Referral Summary ---
Author Organization [facility] Address [facility] [address], [address] [place] [address] Care Team Providers Care Deicer Inspector Electric Name Role Phone Unavailable Primary Care Provider Unavailabl e Source Comments [facility] (Labor and Delivery) documents do not appear in the Encounter Summary [facility] Social History Tobacco Use Types Packs/Day Years Used Date Smoking Tobacco: Never Assessed Sex and Gender Information Value Date Recorded Sex Assigned at Not on file Legal Sex Male 9:53 AM MST Gender Identity Not on file Sexual Orientation Not on file Plan of Treatment Not on file
--- OUTSIDE RECORDS SUMMARY | 2024-08-14 08:35 | XMS_ITS ---
Author Organization [facility] Address [address] [place] [address] Care Team Providers Care Molding Line Operator Name Role Phone unknown, unknown Primary Care Provider Unavailab Martinez, [id number] Lizz Unavailable Allergies No Known Allergies Results Component Value Reference Range Notes Urinalysis (IH) Reviewed date:11/29/2023 11:09:39 AM Interpretation:Normal Performing Lab: Notes/Report: Normal Blood Hemolyzed Negative trace - ca. 250 Joseph/ml Protein 30 negative - 500 mg/dL Glucose Negative negative - > 1000 mg/dL Spec. Gr. 1.025 1.000 - 1.030 REASON FOR VISIT DOT Physical Medications Medication SIG (Take, Route, Frequency, Duration) [...] Answer Notes Tobacco use: Nonsmoker Vital Signs Blood pressure systolic 144 mm Hg 11/29/19 24 Blood pressure diastolic 92 mm Hg 024 Respiratory Rate 16 /min 11/29/2023 Height 69 in 11/29/2023 Weight 223 lbs 11/29/2023 BMI 32.93 kg/m2 11/29/2023 Encounters Encounter Location Date Provider Diagnosis [id number] [facility] [address] [address] 11/29/2023 Lizz Prasad Encounter for pre-employment health screening examination Z02.1 Assessments Encounter Date Diagnosis (ICD Code) Assessment Notes Treatment Notes Treatment Clinical Notes Section Notes 11/29/2023 Encounter for pre-employment health screening examination (ICD-10 - Z02.1) Plan Of Treatment Next Appt Details Follow Up: As Needed, Reason : Progress Notes * Shaheen STEPHENS ADOB: 0 (63 yo M)Acc No.[id number]:11/29/2023 Progress Note Patient: Shaheen BRASWELL Provider: Brian Prasad APN :1960 A ge:63 Y S ex:Male Date:11/29/2023 External Visit ID:[id number] Address:[facility] [address] [facility], [place], [id number] Pcp:unknown unknown Subjective: * Chief Complaints: * 1 . DOT Physical. * HPI: C onstitutional: Patient presents to clinic for DOT physical. * ROS: C ONSTITUTIONAL: feels well y es. * Medical History: H ashimotos. * Surgical History: D enies Past Surgical History. * Hospitalization/Major Diagno stic Procedure: D enies Past Hospitalization. * Family History: Denies family history of sudden cardiac . * Social History: T obacco Use: T obacco Control (Standard) T obacco use: N onsmoker. * Medications: T aking Naltrexone HCl 50 MG Tablet 1 tablet Orally Once a day States he takes 0.05 mg daily for Hashimotos, Taking Levothyroxine Sodium 100 MCG Capsule 1 capsule in the morning on an empty stomach Orally Once a day , Medication List reviewed and reconciled with the patient * Allergies: N .K.D.A. Objective: * Vitals: P ulse:63, RR:16, BP:144/92, Pain (at time of visit):0/10, LNMP: male, Ht: 69, Wt: 223, BMI:32.93, Neck Circumference: 18. * Examination: F ocused Exam: T he patient was informed of his right to request a supervisor concrete stone finishing during the exam. The exam was conducted without incident. Assessment: * Assessment: 1. E ncounter for pre-employment health screening examination - Z02.1 (Primary) Plan: * Treatment: Value Reference Range B lood Hemolyzed Negative trace - ca. 250 Joseph/ ml * P rotein 30 negative - 500 mg/dL * G lucose Negative negative - > 1000 mg /dL * S pec. Gr. 1.025 1.000 - 1.030 * Urine collected by provider. Results reiewed by provider with patient.Lizz Prasad 11/29/2023 10:09:05 AM MDT > * Procedure Codes: 8 1002 URINALYSIS NON AUTOMATED WITH NO MICRO, DOTEP Department of Transportation Employment Physicals * Follow Up: A s Needed * Billing Information: * Visit Code: * Procedure Codes: 41632 URINALYSIS NON AUTOMATED WITH NO MICRO. DOTEP Department of Transportation Employment Physicals. Images * 11-29-2023-09-00-25-AM ID an d INSUR 7.10.24 DOT * Sign off status: Completed true * Provider: Brian Prasad APN Date: 0 11/29/2023 Generated for Mac fuentes/Gilbert/eTransmitting on: 0 08/14/2024 08:34 AM CDT History and Physical Notes * HPI (History of Present Illness) Category Sub-Category Detail Notes Category Not es Constitutional Patient prese nts to clinic for DOT physical. Examination Category Sub-Category Detail Notes Category Not es Focused Exam The patient was informed of his right to request a supervisor concrete stone finishing during the exam. The exam was conducted without incident.
[2024-08-14 08:43] LABS: Basophils Absolute Auto 0.05 K/mm3 (0.00-0.10); Basophils Percent Auto 0.9 % (0.0-1.0); Eosinophils Absolute Auto 0.25 K/mm3 (0.02-0.50); Eosinophils Percent Auto 4.6 % (1.0-6.0); Hematocrit 43.8 % (37.0-46.0); Hemoglobin 14.6 g/dL (12.4-15.3); Immature Granulocyte Absolute 0.02 K/mm3 (0.00-0.00); Immature Granulocyte Percent A 0.4 % (0.0-0.0); Lymphocytes Absolute Auto 0.86 K/mm3 (1.10-4.50); Lymphocytes Percent Auto 15.9 % (18.0-42.0); Mean Corpuscular HGB Conc 33.3 g/dL (32-36); Mean Corpuscular Volume 89.9 fL (78.0-102.0); Mean Platelet Volume 9.8 fl (8.7-11.0); Monocytes Absolute Auto 0.37 K/mm3 (0.10-0.90); Monocytes Percent Auto 6.8 % (2.0-11.0); Neutrophils Absolute Auto 3.86 K/mm3 (1.70-7.20); Neutrophils Percent Auto 71.4 % (50.0-70.0); Platelet Count Result 161 K/mm3 (150-420); Red Blood Count 4.87 M/mm3 (4.70-6.10); Red Cell Distribution Width 13.1 % (11.6-14.4); White Blood Count 5.4 K/mm3 (4.8-10.8)
[2024-08-14 08:50] LABS: Hemoglobin A1C 4.9 % (<5.7)
[2024-08-14 09:26] LABS: Alanine Aminotransferase 40 U/L (16-63); Albumin Level 4.1 g/dL (3.4-5.0); Alkaline Phosphatase 72 U/L (46-116); Anion Gap 7 mmol/L (4-12); Aspartate Amino Transferase 16 U/L (15-37); Bilirubin,Total 1.4 mg/dL (0.00-1.00); Blood Urea Nitrogen 15 mg/dL (7-18); Calcium 8.8 mg/dL (8.5-10.1); Carbon Dioxide 28 mmol/L (21-32); Chloride 104 mmol/L (98-108); Cholesterol 164 mg/dL (0-200); Estimated Glomerular Filt Rate > 60; Glucose 95 mg/dL (70-99); HDL Direct 40 mg/dL (40-60); LDL Cholesterol Calculated 111 mg/dL (<130); Osmolality Calculated 288 mOsm/kg (285-295); Sodium 139 mmol/L (136-145); Triglycerides 67 mg/dL (0-150)
== END 2024-08-14 08:20 | disposition home or self-care (01) ==
LOC: CHSLAB 08:25
PROVIDERS: PCP Nurse Practitioner Family; Visit Provider Nurse Practitioner Family
DX: Z01.83 Encounter for blood typing (principal); E06.3 Autoimmune thyroiditis; Z13.1 Encounter for screening for diabetes mellitus
CPT/HCPCS: 36415; 80053; 80061; 83036; 85025; 86900; 86901

== ENCOUNTER 2024-08-28 00:34 | Day surgery (SDC) | payer MEDICARE, OTHER, SELFPAY ==
[2024-08-22 12:20] VITALS: BMI 35.5
--- OUTSIDE RECORDS SUMMARY | 2024-08-28 00:36 | XMS_ITS | Encounter Summary ---
Author Organization [facility] Address [address] [place] [address] Care Team Providers Care Gleason Operator Name Role Phone Padmini Flores MD Primary Care Provider [phone] Encounter Details Date Type Department Care Team (Late st Contact Info) Description 05/31/2019 Abstract [facility] [address] [facility], [facility] [address] [place] [address] Himprovider, Scan Social History Tobacco [...] documented as of this encounter Care Teams Gleason Operator Relationship Specialty Start Date End Date Padmini Flores MD [address] [place] [address] [address] [place] [address] PCP - General Family Medicine 06/13/22 documented as of this encounter
--- OUTSIDE RECORDS SUMMARY | 2024-08-28 00:36 | XMS_ITS | Clinical Summary ---
Author Organization [facility] Address [address] [place] [address] Care Team Providers Care Reo Asset Manager Name Role Phone None, Provider MD Primary [...] CDT - 08/01/2024 11:14 AM CDT Emergency [facility] [address] [place] [address] [place] [address] Ajay Cummings, Poison Audrey/ Poison [place]/ Poison [place] Discharge Disposition: Home or Self [...] Hepatitis C 1978 COVID-19 Vaccine ( - 2023-2 5 season) 2024 Pneumococcal Vaccine: 65+ Years (1 of 1 - PCV) 2024 DTaP, Tdap and Td Vaccines ( 2 - Td or Tdap) 09/24/2029 09/25/2019, 10/09/2004 RSV Immunization or 60+ Years (1 - 1-dose 75+ series) 2034 Zoster Vaccines Completed 11/15/2021, 04/19/2021, 01/20/2020 Meningococcal B Vaccine Aged Out No [...] 20 Months Aged Out No longer eligible b ased on patient's age to complete this topic Insurance MEDIC[place] [address] [place] [phone] [facility] Care Teams Reo Asset Manager Relationship Specialty Start Date End Date None, Provider, MD PCP - General UNKNOWN PHYSICIAN SPECIALTY 10/29/23
--- OUTSIDE RECORDS SUMMARY | 2024-08-28 00:36 | XMS_ITS | Referral Summary ---
Author Organization [facility] Address [facility] [address], [address] [place] [address] Care Team Providers Care Optics Manufacturing Technician Name Role Phone Unavailable Primary Care Provider Unavailabl e Source Comments STORK (Labor and Delivery) documents do not appear in the Encounter Summary [facility] Social History Tobacco Use Types Packs/Day Years Used Date Smoking Tobacco: Never Assessed Sex and Gender Information Value Date Recorded Sex Assigned at Not on file Legal Sex Male 9:53 AM MST Gender Identity Not on file Sexual Orientation Not on file Plan of Treatment Not on file
--- OUTSIDE RECORDS SUMMARY | 2024-08-28 00:36 | XMS_ITS | Encounter Summary ---
Author Organization [facility] Address [address] [place] [address] Care Team Providers Care Radiology Resident Name Role Phone Padmini Flores MD Primary Care Provider [phone] Encounter Details Date Type Department Care Team (Late st Contact Info) Description 05/29/2019 Abstract [facility] [address] [facility], [facility] [address] [place] [address] Himprovider, Scan Social History Tobacco [...] documented as of this encounter Care Teams Radiology Resident Relationship Specialty Start Date End Date Padmini Flores MD [address] [place] [address] [address] [place] [address] PCP - General Family Medicine 06/13/22 documented as of this encounter
--- OUTSIDE RECORDS SUMMARY | 2024-08-28 00:37 | XMS_ITS | Encounter Summary ---
Author Organization [facility] Address [address] [place] [address] Care Team Providers Care Plastic Top Assembler Name Role Phone Padmini Flores MD Primary Care Provider [phone] Encounter Details Date Type Department Care Team (Late st Contact Info) Description 03/23/2020 Abstract [facility] [address] [facility] [address] [place] [address] Jourdan Gaona MD [address] [place] [address] [address] [place] [address] Social History Tobacco Use Types [...] documented as of this encounter Care Teams Plastic Top Assembler Relationship Specialty Start Date End Date Padmini Flores MD [address] [place] [address] [address] [place] [address] PCP - General Family Medicine 1/23/23 documented as of this encounter
--- OUTSIDE RECORDS SUMMARY | 2024-08-28 00:37 | XMS_ITS | Patient Health Record ---
Author Organization [facility] Address [address] [place] [address] Care Team Providers Care Blast Furnace Operator Name Role Phone unknown, unknown Primary Care Provider Unavailab Lizz Martinez Unavailable [phone] Allergies No Known Allergies Results Component Value [...] 11/29/2023 Encounters Encounter Location Date Provider Diagnosis [id number] [facility] [address] [address] 11/29/2023 Lizz Prasad Encounter for pre-employment health [...] Date PROMPT PAY/Bill to Patient Shaheen Stephens Self - patient is the insured Medical (General) History Medical History History ICD Code Hashimotos
--- OUTSIDE RECORDS SUMMARY | 2024-08-28 00:37 | XMS_ITS | Encounter Summary ---
Author Organization [facility] Address [address] [place] [address] Care Team Providers Care Technical Staff Engineer Name Role Phone Padmini Flores MD Primary Care Provider [phone] Encounter Details Date Type Department Care Team (Late st Contact Info) Description 04/01/2019 Abstract [facility] Occupational Health Services at [facility] [address] [facility], [facility] [address] [place] [address] Blair Staley MD [facility] [address]LO[address] [place], [place] [id number] Social History Tobacco Use Types Packs/Day Years [...] documented as of this encounter Care Teams Technical Staff Engineer Relationship Specialty Start Date End Date Padmini Flores MD [address] [place] [address] [address] [place] [address] PCP - General Family Medicine 06/13/22 documented as of this encounter
--- OUTSIDE RECORDS SUMMARY | 2024-08-28 00:37 | XMS_ITS | Encounter Summary ---
Author Organization [facility] Address [address] [place] [address] Care Team Providers Care Bus Mechanic Name Role Phone Padmini Flores MD Primary Care Provider [phone] Encounter Details Date Type Department Care Team (Late st Contact Info) Description 01/20/2020 [facility] [address], [facility] [address] [place] [address] Mi Masters Social History Tobacco [...] documented as of this encounter Care Teams Bus Mechanic Relationship Specialty Start Date End Date Padmini Flores MD [address] [place] [address] [address] [place] [address] PCP - General Family Medicine 06/13/22 documented as of this encounter
--- OUTSIDE RECORDS SUMMARY | 2024-08-28 00:37 | XMS_ITS | Clinical Summary ---
Author Organization [facility] Address [facility] [address], [address] [place] [address] Care Team Providers Care Hand Router Operator Name Role Phone Unavailable Primary Care Provider Unavailabl e Source Comments STORK (Labor and Delivery) documents do not appear in the Encounter Summary [facility] Social History Tobacco Use Types Packs/Day [...]
--- OUTSIDE RECORDS SUMMARY | 2024-08-28 00:37 | XMS_ITS | Clinical Summary ---
Author Organization [facility] Address [address] [place] [address] Care Team Providers Care Telecommunications Line Installer Name Role Phone Padmini Flores MD Primary Care Provider [phone] Allergies No known active allergies Medications cholecalciferol [...] Cytomel. Was on this as well as [place] in the past via a remote endo in [place]. Looking at past trends, has been hard [...] often do you attend chur ch or baptist services? More than 4 times per year 12/13/2021 Do you belong to any clubs o r organizations such as mosque groups, unions, fraternal or athletic groups, or [...] care, and heating? Not very hard 12/13/2021 [facility] - Occupational Stress [...] place to sleep or slept in a senior care (including now)? No 12/13/2021 Sex and Gender [...] 10/29/2022 10/29/2012, 09/17/2012 Colorectal Cancer Screening 10/29/2022 COVID-19 Vaccine ( - season) 2024 Advance Care Plan Codes Not Dropped This Year 2024 Pneumococcal Vaccine: 65+ Years (1 of 1 - PCV) 2024 Influenza Vaccine (Season Ended) 2024 02/08/2019, 02/08/2019, 02/08/2019, Additional history exists DTaP,Tdap,and Td Vaccines (2 - Td or [...] AM MDT) Anatomical Region Laterality Modality Other [facility] Provider MD HEALTH MAINTENANCE Final Result from Last 3 Months or Most Recently Relevant to Health Maintenance Insurance [facility] Care Teams Telecommunications Line Installer Relationship Specialty Start Date End Date Padmini Flores MD [address] [facility] [address] [place], [place] [id number] PCP - General Family Medicine 06/13/22
--- OUTSIDE RECORDS SUMMARY | 2024-08-28 00:37 | XMS_ITS | Clinical Summary ---
Author Organization [facility] Address Regional Office [address] [place] [address] Care Team Providers Care Manager Editorial Name Role Phone Unavailable Primary Care Provider Unavailabl e Source Comments NOTE: The information displayed by Care Everywhere is extracted from the complete medical record and may not identify all current or past patient conditions.[facility] Allergies Active Allergy Reactions Criticality Noted Date [...]
--- OUTSIDE RECORDS SUMMARY | 2024-08-28 00:37 | XMS_ITS | Encounter Summary ---
Author Organization [facility] Address [facility] [address], [address] [place] [address] Care Team Providers Care Golf Professional Name Role Phone Unavailable Primary Care Provider [...] or prosecute any alcohol or drug abuse patient.[facility] Encounter Details Date Type Department Care Team (Late st Contact Info) Description 10/09/2004 Emergency [facility] - Emergency Medicine Services [address] [place] [address] PROVIDER, NOT CONVERTED Social History [...]
--- OUTSIDE RECORDS SUMMARY | 2024-08-28 00:37 | XMS_ITS ---
Author Organization [facility] Address [address] [place] [address] Care Team Providers Care Water Treatment Plant Engineer Name Role Phone unknown, unknown Primary Care Provider Unavailab Lizz Martinez Unavailable [phone] Allergies No Known Allergies Results Component Value [...] 11/29/2023 Encounters Encounter Location Date Provider Diagnosis [id number] [facility] [address] [address] 11/29/2023 Lizz Prasad Encounter for pre-employment health screening examination Z02.1 Assessments Encounter Date Diagnosis (ICD Code) Assessment Notes Treatment Notes Treatment Clinical Notes Section Notes 11/29/2023 Encounter for pre-employment health screening examination (ICD-10 - Z02.1) Plan Of Treatment Next Appt Details Follow Up: As Needed, Reason : Progress Notes * Shaheen STEPHENS ADOB: 0 (63 yo M)Acc No.[id number]:11/29/2023 Progress Note Patient: Shaheen BRASWELL Provider: Brian Prasad APN :1960 A ge:63 Y S ex:Male Date:11/29/2023 External Visit ID:[id number] Address[facility] [place], [id number] Pcp:unknown unknown Subjective: * Chief Complaints: * [...] informed of his right to request a cigarette vendor during the exam. The exam was conducted [...] Information: * Visit Code: * Procedure Codes: 16624 URINALYSIS NON AUTOMATED WITH NO MICRO. DOTEP Department of Transportation Employment Physicals. Images * 11-29-2023-25-AM ID an d INSUR 7.10.24 DOT * Sign off status: Completed true * Provider: Brian Prasad APN Date: 0 11/29/2023 Generated for Mac fuentes/Gilbert/eTransmitting on: 0 08/28/2024 12:36 AM CDT History and Physical Notes * HPI (History of Present Illness) Category Sub-Category Detail Notes Category Not es Constitutional Patient prese nts to clinic for DOT physical. Examination Category Sub-Category Detail Notes Category Not es Focused Exam The patient was informed of his right to request a cigarette vendor during the exam. The exam was conducted without incident.
[2024-08-28 07:57] VITALS: BP 140/83; PULSE 65; RESP 20; TEMP 36.3; O2SAT 96
[2024-08-28] MEDS: LACTATED RINGERS 1,000 ML 150 ML IV CONT (08:06)
--- NOTE | 2024-08-28 08:17 | WPDANESEPPF ---
Anes - Initial Pre Proc Eval Procedure: Operation Date: 08/28/24 09:00 Proposed Procedures p Colonoscopy - Aroldo Gaspar MD Date/Time: 08/28/24 08:17 Surgeon: Aroldo Gaspar MD Pre Op Diagnosis: Personal history of colon polyps, unspecified Patient Data Age: 64 Gender: M Height: 1.68 m Weight: 99.3 kg Last Vital Signs Temp 36.3 C L 08/28/24 07:57 Pulse 65 08/28/24 07:57 Resp 20 08/28/24 07:57 BP 140/83 08/28/24 07:57 Pulse Ox 96 08/28/24 07:57 O2 Del Method Room Air 08/28/24 07:57 Allergies Allergy/AdvReac Type Severity Reaction Status Date / Time poisin pelon AdvReac Intermediate Swelling Uncoded 08/28/24 07:55 Home Medications ?Medication ?Instructions ?Recorded ?Confirmed ?Type ibuprofen 800 mg tablet 800 mg PO TID PRN pain #20 tabs 09/26/19 08/22/24 Rx liothyronine 5 mcg tablet 10 mcg PO DAILY 08/07/24 08/28/24 History thyroid (pork) 120 mg tablet mg PO 08/07/24 08/07/24 History ([place] Thyroid) Patient hx anesthesia problems: none Family hx anesthesia problems: none Results Review: All pre-operative results and documents have been reviewed as part of the pre-operative evaluation. COUNT INCLUDES [facility] Past Medical History Medical History Personal history of colon polyps, unspecified Cindy's disease Patient denies medical problems Social History Social History Smoking status: Former smoker Alcohol intake: current Drinks per week: 2 Substance use: never Substance use type: does not use Living arrangements: alone Gender identity (if verbalized by the patient): Male Spiritual care concerns: No Anes - Eval Final PreProcedure Day of Procedure 08/28/24 08:17 Patient weight: obese Heart: regular rate and rhythm Lungs: clear to auscultation Airway: Mallampati scale class II Neurological: alert and oriented Last oral intake: >/= 8 hours ASA classification: II Emergent: no Anesthetic plan: proceed Anesthesia type and monitoring: general GIVS and standard monitoring Results Review: All pre-operative results and documents have been reviewed as part of the pre-operative evaluation. Informed Consent: The patient's anesthetic plan and its attendant risks and benefits were discussed with the patient/family/POA. Questions were solicited and answers provided to the satisfaction of the patient/family/POA.
--- NOTE | 2024-08-28 09:26 | PM.IMHP ---
H&P: HPI History of Present Illness Date/Time: 08/28/24 09:26 Chief Complaint: History of colon polyps Narrative: The patient has a history of colonic polyps, the last colonoscopy was approximately 5 years ago. Review of Systems Review of Systems: All systems reviewed & are unremarkable except as noted in HPI and below PMFSH Past Medical History Medical History Personal history of colon polyps, unspecified Cindy's disease Patient denies medical problems Social History Social History Smoking status: Former smoker Alcohol intake: current Drinks per week: 2 Substance use: never Substance use type: does not use Living arrangements: alone Gender identity (if verbalized by the patient): Male Spiritual care concerns: No Meds Home Medications and Allergies Home Medications ?Medication ?Instructions ?Recorded ?Confirmed ?Type ibuprofen 800 mg tablet 800 mg PO TID PRN pain #20 tabs 09/26/19 08/22/24 Rx liothyronine 5 mcg tablet 10 mcg PO DAILY 08/07/24 08/28/24 History thyroid (pork) 120 mg tablet mg PO 08/07/24 08/07/24 History ([place] Thyroid) Allergies Allergy/AdvReac Type Severity Reaction Status Date / Time poisin pelon AdvReac Intermediate Swelling Uncoded 08/28/24 07:55 Vital Signs Vital Signs - 24 hr 08/28/24 07:57 Temperature 97.4 F L Pulse Rate 65 Respiratory Rate 20 Blood Pressure 140/83 Pulse Oximetry 96 Oxygen Delivery Room Air Exam Const: General: cooperative and healthy appearing Resp: Effort & Inspection: normal respiratory effort and able to speak in complete sentences Auscultation: clear to auscultation bilaterally Cardio: Rate: regular rate Rhythm: regular rhythm GI: Inspection: normal to inspection GI Palp: No No hepatosplenomegaly present Auscultation: normal bowel sounds Rectal Exam: deferred Skin: General skin exam: normal color Psych: Appearance: grossly normal Mental Status: mental status grossly normal Assessment and Plan Assessment and plan (1) Personal history of colon polyps, unspecified: Code(s): Z86.0100 - Personal history of colon polyps, unspecified Status: Acute Assessment and Plan: The patient is deemed a good candidate for the procedure. Consent signed. Will proceed.
[2024-08-28 09:53] VITALS: BP 126/74; PULSE 60; RESP 18; O2SAT 100
[2024-08-28 10:03] VITALS: BP 140/85; PULSE 68; RESP 22; O2SAT 100
[2024-08-28 10:13] VITALS: BP 143/87; PULSE 62; RESP 25; O2SAT 100
== END 2024-08-28 10:25 | disposition home or self-care (01) ==
PROVIDERS: PCP Nurse Practitioner Family; Referring Provider Nurse Practitioner Family; Visit Provider Internal Medicine Gastroenterology
PROC: 0DJD8ZZ Inspection of Lower Intestinal Tract, Via Natural or Artificial Opening Endoscopic (ICD-10-PCS; CPT 45378; principal; 2024-08-28 09:00)
DX: Z12.11 Encounter for screening for malignant neoplasm of colon (principal); K57.30 Diverticulosis of large intestine without perforation or abscess without bleeding; K64.8 Other hemorrhoids; Z86.0100 Personal history of colon polyps, unspecified; Z87.891 Personal history of nicotine dependence; E66.9 Obesity, unspecified; Z68.35 Body mass index [BMI] 35.0-35.9, adult
CPT/HCPCS: G0105; J2003; J2704; J7120

== ENCOUNTER 2024-09-30 11:15 | Outpatient (CLI) | payer MEDICARE, SELFPAY ==
--- OUTSIDE RECORDS SUMMARY | 2024-09-30 11:29 | XMS_ITS | Clinical Summary ---
Author Organization [facility] Address [facility] [address], [address] [place] [address] Care Team Providers Care Project Designer Name Role Phone Unavailable Primary Care Provider Unavailabl e Source Comments STORK (Labor and Delivery) documents do not appear in the Encounter Summary [facility] Social History Tobacco Use Types Packs/Day Years Used Date Smoking Tobacco: Never Assessed Sex and Gender Information Value Date Recorded Sex Assigned at Not on file Legal Sex Male 9:53 AM MST Gender Identity Not on file Sexual Orientation Not on file Plan of Treatment Health Maintenance Due Date Last Done Comments Retired: Lipid Panel 1960 Tetanus Diphtheria and Pertu ssis Vaccines (1 - Tdap) 1978 CT Colonography 2004 Colon Cancer Screening 2004 Colonoscopy 2004 DNA-based stool test (Cologuard) 2004 Sigmoidoscopy 2004 gFOBT or FIT 2004 Pneumococcal Vaccine: 65+ Ye ars (1 of 1 - PCV) 2009 Zoster Vaccines (1 of 2) 2009 COVID-19 Vaccine ( - 2023-2 5 season) 2024 Influenza Vaccine (Season Ended) 2025 RSV Vaccines (1 - 1-dose 75+ series) [...] patient's age to complete this topic Meningococcal B Vaccine Aged Out No l [...]
--- OUTSIDE RECORDS SUMMARY | 2024-09-30 11:29 | XMS_ITS | Encounter Summary ---
Author Organization [facility] Address [address] [place] [address] Care Team Providers Care Environmental Research Scientist Name Role Phone Padmini Flores MD Primary Care Provider [phone] Encounter Details Date Type Department Care Team (Late st Contact Info) Description 05/31/2019 Abstract [facility] [address] [facility], [facility] [address] [place] [address] Himprovider, Scan Social History Tobacco [...] documented as of this encounter Care Teams Environmental Research Scientist Relationship Specialty Start Date End Date Padmini Flores MD [address] [place] [address] [address] [place] [address] PCP - General Family Medicine 06/13/22 documented as of this encounter
--- OUTSIDE RECORDS SUMMARY | 2024-09-30 11:29 | XMS_ITS | Encounter Summary ---
Author Organization [facility] Address [address] [place] [address] Care Team Providers Care Work Manager Name Role Phone Padmini Flores MD Primary Care Provider [phone] Encounter Details Date Type Department Care Team (Late st Contact Info) Description 03/23/2020 Abstract [facility] [address] [facility] [address] [place] [address] Jourdan Gaona MD [address] [place] [address] [address] [place] [address] Social History Tobacco Use Types [...] documented as of this encounter Care Teams Work Manager Relationship Specialty Start Date End Date Padmini Flores MD [address] [place] [address] [address] [place] [address] PCP - General Family Medicine 06/13/22 documented as of this encounter
--- OUTSIDE RECORDS SUMMARY | 2024-09-30 11:29 | XMS_ITS | Encounter Summary ---
Author Organization [facility] Address [address] [place] [address] Care Team Providers Care Rn Transfer Name Role Phone Unavailable Primary Care Provider [...] 19 ENDODONTIC THERAPY, ANTERIOR TOOTH (EXCLUDING FINAL HOLINESS) Routine 05/11/2016 1:00 AM MST 8 ENDODONTIC THERAPY, ANTERIOR TOOTH (EXCLUDING FINAL HOLINESS) Routine 05/11/2016 1:00 AM MST 31 CROWN [...] 19 CEMENT CROWN Routine 05/11/2016 1:00 AM [facility] 19 CERECFIRED CROWNPOST Routine 05/11/20 16 1:00 AM [facility] COMPREHENSIVE ORAL EVALUATION - NEW OR ESTABLISHED PATIENT Routine 05/11/2016 1:00 AM [facility] ADDITIONAL X-RAY Routine 05/11/2016 1:00 AM [facility] SINGLE X-RAY Routine 05/11/2016 1:00 AM [facility] 30 O COMPOSITE FILLING Routine 6 1:00 AM [facility] Visit Diagnoses Not on file
--- OUTSIDE RECORDS SUMMARY | 2024-09-30 11:29 | XMS_ITS | Clinical Summary ---
Author Organization [facility] [employer] [facility] Address [address] [address] Care Team Providers Care Carding Supervisor Name Role Phone Natividad Brown MD Primary Care Provider [phone] Allergies No known active allergies Medications lisinopril [...] 98.9 kg (218 lb) 06/10/2019 7:42 AM [facility] Height 175.3 cm (5' 9 ) 06/10/2019 7:42 AM [facility] Body Mass Index 32.19 06/10/2019 7:42 AM [facility] Plan of Treatment Health Maintenance Due Date Last Done Comments CT Colonography 1959 Colonoscopy 1959 Colorectal Cancer Screening 1959 Flexible Sigmoidoscopy 1959 Stool DNA Test (Cologuard) 1959 Stool Occult Blood Test (FIT) 1959 Hepatitis C Antibody Screening 1977 Medical Durable Power of Informatica Architect (MDPOA) 1977 Tdap/Td Vaccine (1 - Tdap) 10/10/2004 10/09/2004 Pneumonia Vaccine 50+ (1 of 1 - PCV) 2009 Shingles Vaccine (1 of 2) 2009 Lipids 04/04/2012 04/04/2007, 04/04/2007 SARS-COV2 (COVID-19) Vaccine (1 - 2023- season) 2024 Insurance [employer] POS [employer] WC Care Teams Carding Supervisor Relationship Specialty Start Date End Date Natividad Brown MD PCP - General Physical Medicine and Rehabilitation 03/02/18
--- OUTSIDE RECORDS SUMMARY | 2024-09-30 11:29 | XMS_ITS | Encounter Summary ---
Author Organization [facility] Address [facility] [address], [address] [place] [address] Care Team Providers Care Automation Application Engineer Name Role Phone Unavailable Primary Care Provider [...] or prosecute any alcohol or drug abuse patient.[facility] Encounter Details Date Type Department Care Team (Late st Contact Info) Description 10/09/2004 Emergency [facility] - Emergency Medicine Services [address] [place] [address] PROVIDER, NOT CONVERTED Social History [...]
--- OUTSIDE RECORDS SUMMARY | 2024-09-30 11:29 | XMS_ITS | Referral Summary ---
Author Organization [facility] Address [facility] [address], [address] [place] [address] Care Team Providers Care Finance Vice President Name Role Phone Unavailable Primary Care Provider Unavailabl e Source Comments [facility] (Labor and Delivery) documents do not appear in the Encounter Summary [facility] Social History Tobacco Use Types Packs/Day Years Used Date Smoking Tobacco: Never Assessed Sex and Gender Information Value Date Recorded Sex Assigned at Not on file Legal Sex Male 9:53 AM MST Gender Identity Not on file Sexual Orientation Not on file Plan of Treatment Not on file
--- OUTSIDE RECORDS SUMMARY | 2024-09-30 11:29 | XMS_ITS | Encounter Summary ---
Author Organization [facility] Address [address] [place] [address] Care Team Providers Care Custom Shop Worker Name Role Phone Padmini Flores MD Primary Care Provider [phone] Encounter Details Date Type Department Care Team (Late st Contact Info) Description 05/29/2019 Abstract [facility] [address] [facility], [facility] [address] [place] [address] Himprovider, Scan Social History Tobacco [...] documented as of this encounter Care Teams Custom Shop Worker Relationship Specialty Start Date End Date Padmini Flores MD [address] [place] [address] [address] [place] [address] PCP - General Family Medicine 06/13/22 documented as of this encounter
--- OUTSIDE RECORDS SUMMARY | 2024-09-30 11:29 | XMS_ITS | Clinical Summary ---
Author Organization [facility] Address [address] [place] [address] Care Team Providers Care Granite Polisher Name Role Phone Padmini Flores MD Primary Care Provider [phone] Allergies No known active allergies Medications cholecalciferol [...] Cytomel. Was on this as well as [place] in the past via a remote endo in [place]. Looking at past trends, has been hard to stabilize TSH. Currently taking Synthroid 224mcg daily, which is a high dose, but still with sx of fatigue. Confirmed he is taking on empty stomach 30 min before meals and other meds and supplements. 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 More than 4 times per year 12/13/2021 Do you belong to any clubs o r organizations such as evangelical groups, unions, fraternal or athletic groups, or [...] care, and heating? Not very hard 12/13/2021 [facility] - Occupational Stress [...] place to sleep or slept in a custodial (including now)? No 12/13/2021 Sex and Gender [...] CT Colonography 1959 Cologuard 1959 Sigmoidoscopy 1959 Pneumococcal Vaccine: 50+ Years (1 of 1 - PCV) 2009 FIT/FOBT 09/17/2013 09/17/2012 Colonoscopy 10/29/2022 10/29/2012, 09/17/2012 Colorectal Cancer Screening 10/29/2022 COVID-19 Vaccine ( - season) 2024 Advance Care Plan Codes Not Dropped This Year 2024 Influenza Vaccine (Season Ended) 2024 02/08/2019, [...] Procedure Name Priority Date/Time Associated Diagnosis Comments HM COLONOSCOPY Routine 10/29/2012 9:29 AM MDT from Last 3 Months or Most Recently Relevant to Health Maintenance Results * Hm Colonoscopy (10/29/2012 9:29 AM MDT) Anatomical Region Laterality Modality Other Historical Provider MD HEALTH MAINTENANCE Final Result from Last 3 Months or Most Recently Relevant to Health Maintenance Insurance [employer] HE[employer]CARE [employer] Care Teams Granite Polisher Relationship Specialty Start Date End Date Padmini Flores MD [address] [facility] [address] [place] [address] PCP - General Family Medicine 06/13/22
--- OUTSIDE RECORDS SUMMARY | 2024-09-30 11:29 | XMS_ITS | Encounter Summary ---
Author Organization [facility] Address [address] [place] [address] Care Team Providers Care Groundskeeping Maintenance Worker Name Role Phone Padmini Flores MD Primary Care Provider [phone] Encounter Details Date Type Department Care Team (Late st Contact Info) Description 01/20/2020 [facility] [address], [facility] [address] [place] [address] [facility] Social History Tobacco Use Types Packs/Day Years [...] documented as of this encounter Care Teams Groundskeeping Maintenance Worker Relationship Specialty Start Date End Date Padmini Flores MD [address] [place] [address] [address] [place] [address] PCP - General Family Medicine 06/13/22 documented as of this encounter
--- OUTSIDE RECORDS SUMMARY | 2024-09-30 11:29 | XMS_ITS | Clinical Summary ---
Author Organization [facility] Address [address] [place] [address] Care Team Providers Care Glost Kiln Operator Name Role Phone Unavailable Primary Care [...]
--- OUTSIDE RECORDS SUMMARY | 2024-09-30 11:29 | XMS_ITS | Clinical Summary ---
Author Organization [facility] Address [address] [place] [address] Care Team Providers Care Community Planning Technician Name Role Phone None, Provider MD Primary Care Provider Unavaila ble Allergies No known active allergies Medications NON FORMULARY Thyroid testosterone Active Encounters Date Type Department Care Team Description 08/01/2024 9:29 AM CDT - 08/01/2024 11:14 AM CDT Emergency [facility] [address] [place] [address] [place] [address] Ajay Cummings, DO Poison [place]/ Poison [place]/ Poison [place] Discharge Disposition: Home or Self [...] Colonoscopy (10 Years) 1959 Hepatitis C 1977 Pneumococcal Vaccine: 50+ Years (1 of 1 - PCV) 2009 COVID-19 Vaccine (1 - 2023-2 5 season) 2024 DTaP, Tdap and Td Vaccines ( [...] age to complete this topic Insurance MEDICARE [facility] Care Teams Community Planning Technician Relationship Specialty Start Date End Date None, Provider, PCP - General UNKNOWN PHYSICIAN SPECIALTY 10/29/23
--- OUTSIDE RECORDS SUMMARY | 2024-09-30 11:29 | XMS_ITS | Clinical Summary ---
Author Organization [facility] Address Regional Office [address] [place] [address] Care Team Providers Care Filter Worker Name Role Phone Unavailable Primary Care Provider Unavailabl e Source Comments NOTE: The information displayed by Care Everywhere is extracted from the complete medical record and may not identify all current or past patient conditions.[facility] Allergies Active Allergy Reactions Criticality Noted [...]
--- OUTSIDE RECORDS SUMMARY | 2024-09-30 11:29 | XMS_ITS | Encounter Summary ---
Author Organization [facility] Address [address] [place] [address] Care Team Providers Care Stationary Engineer Supervisor Name Role Phone Padmini Flores MD Primary Care Provider [phone] Encounter Details Date Type Department Care Team (Late st Contact Info) Description 04/01/2019 Abstract [facility] Occupational Health Services at [facility] [address] [facility], [facility] [address] [place] [address] Blair Staley MD [facility] [address] FLO[address] [place], [place] [id number] Social History Tobacco Use Types Packs/Day Years [...] documented as of this encounter Care Teams Stationary Engineer Supervisor Relationship Specialty Start Date End Date Padmini Flores MD [address] [place] [address] [address] [place] [address] PCP - General Family Medicine 06/13/22 documented as of this encounter
[2024-09-30 12:23] LABS: Alanine Aminotransferase 23 U/L (6-50); Albumin Level 4.6 g/dL (3.5-5.1); Alkaline Phosphatase 50 U/L (38-126); Anion Gap 6 mmol/L (4-12); Aspartate Amino Transferase 25 U/L (17-59); Blood Urea Nitrogen 20 mg/dL (9-20); Calcium 9.2 mg/dL (8.4-10.2); Carbon Dioxide 26 mmol/L (22-30); Chloride 109 mmol/L (98-107); Estimated Glomerular Filt Rate > 60; Glucose 74 mg/dL (65-110); Osmolality Calculated 293 mOsm/kg (285-295); Potassium 4.9 mmol/L (3.4-5.0); Sodium 141 mmol/L (137-145); Total Protein 6.9 g/dL (6.3-8.2)
[2024-09-30 12:55] LABS: Prostate Specific Antigen 1.8 ng/mL (< OR = 4.0)
== END 2024-09-30 11:16 | disposition home or self-care (01) ==
LOC: CHSLAB 11:16
PROVIDERS: PCP Nurse Practitioner Family; Visit Provider Nurse Practitioner Family
DX: Z12.5 Encounter for screening for malignant neoplasm of prostate (principal); R17 Unspecified jaundice
CPT/HCPCS: 36415; 80053; 84153; G0103

== ENCOUNTER 2024-11-18 08:22 | Outpatient (CLI) | payer MEDICARE, SELFPAY ==
[2024-11-18 08:42] LABS: Hematocrit 45.1 % (37.0-46.0); Hemoglobin 15.4 g/dL (12.4-15.3); Mean Corpuscular HGB Conc 34.1 g/dL (32-36); Mean Corpuscular Hemoglobin 30.7 pg (27.0-31.0); Platelet Count Result 164 K/mm3 (150-420); Red Blood Count 5.01 M/mm3 (4.70-6.10); Red Cell Distribution Width 12.3 % (11.6-14.4); White Blood Count 4.9 K/mm3 (4.8-10.8)
[2024-11-18 09:09] LABS: Hemoglobin A1C 5.3 % (<5.7)
[2024-11-18 09:17] LABS: Alanine Aminotransferase 25 U/L (6-50); Albumin Level 4.5 g/dL (3.5-5.1); Alkaline Phosphatase 52 U/L (38-126); Anion Gap 6 mmol/L (4-12); Aspartate Amino Transferase 26 U/L (17-59); Bilirubin,Total 1.2 mg/dL (0.2-1.3); Blood Urea Nitrogen 18 mg/dL (9-20); Calcium 8.9 mg/dL (8.4-10.2); Carbon Dioxide 23 mmol/L (22-30); Chloride 108 mmol/L (98-107); Cholesterol 182 mg/dL (0-200); Estimated Glomerular Filt Rate > 60; Glucose 92 mg/dL (65-110); HDL Direct 37 mg/dL; LDL Cholesterol Calculated 127 mg/dL (<130); Osmolality Calculated 285 mOsm/kg (285-295); Potassium 4.5 mmol/L (3.4-5.0); Sodium 137 mmol/L (137-145); Triglycerides 91 mg/dL (<150)
[2024-11-18 09:28] LABS: Free T4 Free Thyroxine 0.25 ng/dL (0.78-2.19); Vitamin D 25 Hydroxy 43.9 ng/mL
[2024-11-18 10:37] LABS: Free T3 2.44 pg/mL (2.18-3.98)
[2024-11-20 10:54] LABS: Thyroid Peroxidase Antibodies. 383 IU/mL (<9)
[2024-11-20 11:53] LABS: Homocysteine. 11.2 umol/L (< or = 15.2)
[2024-11-21 14:45] LABS: Insulin Level Total. 10.8 uIU/mL
[2024-11-22 12:42] LABS: Testosterone Free 32.4 pg/mL (35.0-155.0); Testosterone Total 269 ng/dL (250-1100)
== END 2024-11-18 08:23 | disposition home or self-care (01) ==
LOC: CHSLAB 08:26
PROVIDERS: PCP Nurse Practitioner Family; Visit Provider Nurse Practitioner
DX: D51.3 Other dietary vitamin B12 deficiency anemia (principal); E59 Dietary selenium deficiency; E61.1 Iron deficiency; E72.11 Homocystinuria; E78.5 Hyperlipidemia, unspecified; M79.10 Myalgia, unspecified site; R53.83 Other fatigue; Z71.3 Dietary counseling and surveillance; Z79.890 Hormone replacement therapy; Z86.39 Personal history of other endocrine, nutritional and metabolic disease
CPT/HCPCS: 36415; 80053; 80061; 82306; 82642; 82670; 82679; 83036; 83090; 83525; 84153; 84154; 84402; 84403; 84439; 84443; 84481; 84482; 85027; 86140; 86141; 86376; 86800

== ENCOUNTER 2025-03-11 13:41 | Outpatient (CLI) | payer MEDICARE, SELFPAY ==
[2025-03-11 13:53] LABS: Add Urine Microscopic? NO; Appearance Urine Clear (Clear); Glucose Urine UA Negative (Negative); Leukocyte Esterase Ur Negative LEU/UL (Negative); Nitrate Urine Negative (Negative); Specific Grav Ur 1.025 (1.010-1.020)
== END 2025-03-11 13:42 | disposition home or self-care (01) ==
LOC: CHSLAB 13:42
PROVIDERS: PCP Nurse Practitioner Family; Visit Provider Nurse Practitioner Family
DX: R10.A2 Flank pain, left side (principal)
CPT/HCPCS: 81003

== ENCOUNTER 2025-05-02 07:38 | Outpatient (CLI) | payer MEDICARE, SELFPAY ==
[2025-05-02 08:44] LABS: HIV 1 P24 AG Negative (Negative); HIV 1/2 AB Negative (Negative)
[2025-05-02 08:49] LABS: Hematocrit 40.7 % (37.0-46.0); Hemoglobin 13.7 g/dL (12.4-15.3); Immature Granulocyte Percent A 0.2 % (0.0-0.0); Lymphocytes Absolute Auto 0.86 K/mm3 (1.10-4.50); Mean Corpuscular HGB Conc 33.7 g/dL (32-36); Mean Corpuscular Hemoglobin 30.9 pg (27.0-31.0); Mean Corpuscular Volume 91.9 fL (78.0-102.0); Nucleated Red Blood Cells Absolute Auto 0.00 K/mm3 (0.00-0.00); Nucleated Red Blood Cells Perc 0.0 % (0-0.0); Platelet Count Result 163 K/mm3 (150-420); Red Blood Count 4.43 M/mm3 (4.70-6.10); White Blood Count 4.2 K/mm3 (4.8-10.8)
[2025-05-02 08:50] LABS: Thyroid Stimulating Hormone Reflex 6.070 uIU/mL (0.465-4.68)
[2025-05-02 08:55] LABS: Iron 92 ug/dL (49-181)
[2025-05-02 09:10] LABS: Alanine Aminotransferase 41 U/L (6-50); Albumin Level 4.7 g/dL (3.5-5.1); Alkaline Phosphatase 58 U/L (38-126); Anion Gap 9 mmol/L (4-12); Aspartate Amino Transferase 35 U/L (17-59); Bilirubin,Total 1.0 mg/dL (0.2-1.3); Blood Urea Nitrogen 21 mg/dL (9-20); CRP < 0.5 mg/dL (<1.0); Calcium 9.4 mg/dL (8.4-10.2); Carbon Dioxide 26 mmol/L (22-30); Chloride 106 mmol/L (98-107); Cholesterol 180 mg/dL (0-200); Estimated Glomerular Filt Rate > 60; Glucose 94 mg/dL (65-110); HDL Direct 45 mg/dL; Osmolality Calculated 295 mOsm/kg (285-295); Percent Iron Saturation 35 % (20-50); Potassium 4.4 mmol/L (3.4-5.0); Sodium 141 mmol/L (137-145); Total Protein 7.1 g/dL (6.3-8.2); Triglycerides 51 mg/dL (<150)
[2025-05-02 09:11] LABS: Hemoglobin A1C 5.2 % (<5.7)
[2025-05-02 09:30] LABS: Ferritin 214.00 ng/mL (11.1-264)
[2025-05-02 09:42] LABS: Free T4 Free Thyroxine Reflex 0.53 ng/dL (0.78-2.19)
[2025-05-02 09:45] LABS: Vitamin B12 980.0 pg/mL (239-931)
[2025-05-02 11:18] LABS: Syphilis IgG/IgM Antibody Non-Reactive (Nonreactive)
[2025-05-02 11:28] LABS: Hepatitis B Surface Antigen Negative (Negative)
[2025-05-02 11:34] LABS: HAV RESULT Negative (Negative); Hepatitis B Core IgM Result Negative (Negative)
[2025-05-02 17:14] LABS: Free T3 3.81 pg/mL (2.18-3.98)
[2025-05-03 05:07] LABS: HSV 1 IgG, Type Spec Non Reactive (Non Reactive); HSV 2 IgG, Type Spec Non Reactive (Non Reactive)
[2025-05-03 08:08] LABS: FSH 3.3 mIU/mL (1.5-12.4)
[2025-05-03 09:08] LABS: LH 3.2 mIU/mL (1.7-8.6)
[2025-05-06 20:08] LABS: Free Testosterone (Direct) 4.4 pg/mL (6.6-18.1)
[2025-05-07 12:08] LABS: PSA, Free 0.27 ng/mL
== END 2025-05-02 07:39 | disposition home or self-care (01) ==
PROVIDERS: PCP Nurse Practitioner Family; Visit Provider Nurse Practitioner Family
DX: Z11.3 Encounter for screening for infections with a predominantly sexual mode of transmission (principal); R17 Unspecified jaundice; E06.3 Autoimmune thyroiditis; R00.1 Bradycardia, unspecified; Z13.1 Encounter for screening for diabetes mellitus; Z01.83 Encounter for blood typing; I10 Essential (primary) hypertension; R53.83 Other fatigue; E03.9 Hypothyroidism, unspecified; R79.89 Other specified abnormal findings of blood chemistry; Z72.51 High risk heterosexual behavior; B35.1 Tinea unguium; R21 Rash and other nonspecific skin eruption; Z68.34 Body mass index [BMI] 34.0-34.9, adult
CPT/HCPCS: 36415; 80053; 80061; 80074; 82306; 82533; 82607; 82627; 82670; 82728; 83001; 83002; 83036; 83090; 83525; 83540; 83550; 84140; 84153; 84154; 84402; 84403; 84439; 84443; 84481; 84482; 85025; 86140; 86593; 86695; 86696; 87806